=== PATIENT | female | born 1975 | race Caucasian/White ===

== ENCOUNTER → 2016-11-21 | Outpatient (CLI) | payer OTHER ==
[~2016-11-21] MED LIST: CYMBALTA30 M1; DOXYCYCLINE HY100 M3 PO; MIRENA IUD; MOBIC15 MG PO; PANTOPRAZOLE SO40 MG PO; PLAQUENIL200 MG PO; SPIRONOLACTONE50 MG PO; VITAMIN D250000 UNIT PO; VOLTAREN50 MG PO
--- NOTE | ~2016-11-21 | CR97 ---
[facility] A Service of [facility] & [facility] / [facility] RADIOLOGY TEXT RESULTS PATIENT: MEMO BARRETT LOCATION: [facility] : 77 UNIT #: [id number] AGE: [address]: Damian Ji MD SEX: F ORDER DR: [id number] [facility]. [place], [place] [address] [id number] O MR#: [id number] Acc #: [id number] NAME: MEMO BARRETT : 1975 SEX: F STUDY DATE/TIME: 11/21/2016 9:29 UNIT: [facility] ROOM: STUDY DESCRIPTION: CR Esophagram Attending Physician: Damian Ji M.D. Referring Physician: Damian Ji M.D. Ordering Physician: Damian Ji M.D. Primary Care Physician: Caren Anglin A.P.R.N. MEDICAL IMAGING REPORT This report is preliminary unless electronic signature is present EXAM Esophagram 11/21/2016 INDICATIONS 40-year-old female presenting for preop evaluation for lap-band surgery. Possible paraesophageal hernia repair. Acid reflux symptoms, shortness of air with activity. Symptoms began today. TECHNIQUE/COMPARISON Spot fluoroscopic views of the esophagus were obtained in various projections after the patient ingested gas crystals and thick and thin liquid barium on 11/21/2016. No comparisons. FINDINGS Notes indicate 0.8 minutes of fluoroscopy time was used in the case 40 images from the procedure were saved to the DR/PACS. The esophagus demonstrates an unremarkable primary stripping wave. No significant secondary or tertiary contractions. No mass or mucosal abnormality. No significant reflux. No hiatal hernia. IMPRESSION 1. Negative esophagram. 2. Notes indicate 0.8 minutes of fluoroscopy time was used in the case. 40 images from the procedure were saved to the DR/PACS. Dictated by... Sumit Hernandez M.D. THIS IS AN ELECTRONICALLY VERIFIED REPORT Sumit Hernandez M.D. at 11/21/2016 5:16 PM MANUEL/cooper [facility] A Service of [facility] & [facility] / [facility] RADIOLOGY TEXT RESULTS PATIENT: MEMO BARRETT LOCATION: [facility] #: [id number] : [birth year] UNIT #: [id number] AGE: [address]: Damian Ji MD SEX: F ORDER DR: TD: 11/21/2016 14:30 JOB #: [id number] MEDICAL IMAGING REPORT Page 1 of 1 COPY
--- NOTE | ~2016-11-21 | CR63 ---
[facility] A Service of [facility] & [facility] RADIOLOGY TEXT RESULTS PATIENT: MEMO BARRETT LOCATION: [facility] : 77 UNIT #: [id number] AGE: [address]: Damian Ji MD SEX: F ORDER DR: [id number] [facility] [address] [place], [place] [address] [id number] O MR#: [id number] Acc #: [id number] NAME: MEMO BARRETT : 1975 SEX: F STUDY DATE/TIME: 11/21/2016 8:54 UNIT: [facility] ROOM: STUDY DESCRIPTION: CR Chest 2 View Attending Physician: Damian Ji M.D. Referring Physician: Damian Ji M.D. Ordering Physician: Damian Ji M.D. Primary Care Physician: Caren Anglin A.P.R.N. MEDICAL IMAGING REPORT This report is preliminary unless electronic signature is present EXAM Chest PA and lateral 11/21/2016. HISTORY Morbid obesity, preop laparoscopic gastric banding. Gastroesophageal reflux, shortness of breath on exertion today. FINDINGS PA and lateral examination of the chest upright shows a good expansion of the parenchyma with a normal distribution of the pulmonary vascularity. There is no indication of congestion, effusion, infiltrate, tumor, or nodular density. The pleural reflections and diaphragmatic contours are normal. The cardiac silhouette and mediastinal anatomy is within normal limits. IMPRESSION Normal chest. Dictated by... Bart Guzman M.D. THIS IS AN ELECTRONICALLY VERIFIED REPORT Bart Guzman M.D. at 11/21/2016 4:52 PM YAMILET/lemuel TD: 11/21/2016 13:12 JOB #: [id number] MEDICAL IMAGING REPORT Page 1 of 1 COPY
[2016-11-21 10:03] LABS: HEMATOCRIT 39.5 % (35.0-45.0); HEMOGLOBIN 13.2 gm/dL (12.0-16.0); MEAN CELL VOLUME 83.1 FL (83-96); MEAN CORPUSCULAR HEMOGLOBIN 27.9 PG (28-34); MEAN CORPUSCULAR HGB CONC 33.5 g/dL (30-36); MEAN PLATELET VOLUME 8.6 FL (6.5-11.5); RED BLOOD COUNT 4.75 X10e (3.90-5.30); RED CELL DISTRIBUTION WIDTH 14.2 % (11.0-15.5)
[2016-11-21 11:10] LABS: ALBUMIN SERUM 4.2 g/dL (3.5-5.0); BILIRUBIN,TOTAL 0.4 mg/dL (0.2-2.0); CALCIUM SERUM 9.2 mg/dL (8.4-10.2); CREATININE SERUM 0.7 mg/dL (0.6-1.4); GLOM FILT RATE Estimated 109.1 mL/min (>60); POTASSIUM 4.2 mmol/L (3.5-5.1); PROTEIN TOTAL SERUM 7.2 g/dL (6.0-8.3)
== END | disposition home or self-care (01) ==
LOC: CRAD 08:00 → CAMB 09:00
PROVIDERS: Surgery
DX: Z01.818 Encounter for other preprocedural examination (principal); E66.01 Morbid (severe) obesity due to excess calories
CPT/HCPCS: 36415; 71020; 74220; 80053; 80061; 84443; 85027

== ENCOUNTER → 2016-12-03 | Day surgery (SDC) | payer OTHER ==
--- NOTE | ~2016-12-03 | CR7 ---
[facility] A Service of [facility] & [facility] RADIOLOGY TEXT RESULTS PATIENT: MEMO BARRETT LOCATION: [facility] : 77 UNIT #: [id number] AGE: [address]: Damian Ji MD SEX: F ORDER DR: [id number] [facility] [address] [place], [place] [address] [id number] O MR#: [id number] Acc #: [id number] NAME: MEMO BARRETT : 1975 SEX: F STUDY DATE/TIME: 12/03/2016 11:05 UNIT: [facility] ROOM: STUDY DESCRIPTION: CR Abdomen Single AP View Attending Physician: Damian Ji M.D. Referring Physician: Damian Ji M.D. Ordering Physician: Damian Ji M.D. Primary Care Physician: Caren Anglin A.P.R.N. MEDICAL IMAGING REPORT This report is preliminary unless electronic signature is present EXAM Abdomen single view, 12/03/2016 1105 hours HISTORY Morbid obesity with acid reflux. Postop lap band placement today. COMPARISON Esophagram 11/21/2016 FINDINGS Single view of the abdomen excludes the right flank, left flank and pelvis. There is a lap band present overlying the left T10 and T11 costovertebral junctions, oriented at 55 degrees from vertical. Radiopaque tubing extends inferiorly to a port catheter overlying the midline at the L4 level. Bowel gas pattern is unremarkable. IMPRESSION Postop lap band placement with band overlying the left T10 and T11 costovertebral junctions, oriented at 55 degrees from vertical. Radiopaque tubing courses inferiorly to a port overlying the midline at the L4 level. Bowel gas pattern is unremarkable. Dictated by... Suze Trinh M.D. THIS IS AN ELECTRONICALLY VERIFIED REPORT Suze Trinh M.D. at 12/03/2016 2:31 PM SYL/isidro TD: 12/03/2016 12:21 JOB #: [id number] [facility] A Service of [facility] & [facility] RADIOLOGY TEXT RESULTS PATIENT: MEMO BARRETT [id number] [birth year] UNIT #: [id number] AGE: [address]: Damian Ji MD SEX: F ORDER DR: MEDICAL IMAGING REPORT Page 1 of 1 COPY
--- NOTE | ~2016-12-03 | OR ---
Unit #: [id number] #: [id number] Patient: MEMO BARRETT [id number] [address] [place], [place] [address] [id number] O MR#: [id number] NAME: MEMO BARRETT ROOM: Date of Procedure: 12/03/2016 Admission Date: 12/03/2016 Surgeon: Damian Ji M.D. : 1975 Attending Physician: Damian Ji M.D. Referring Physician: Damian Ji M.D. Primary Care Physician: Caren Anglin A.P.R.N. OPERATIVE REPORT PREOPERATIVE DIAGNOSIS Chronic morbid obesity, body mass index of 40. POSTOPERATIVE DIAGNOSES 1. Chronic morbid obesity, body mass index of 40. 2. Paraesophageal hiatal hernia. PROCEDURES PERFORMED 1. Laparoscopic adjustable gastric band. 2. Laparoscopic paraesophageal hiatal hernia repair. ASSISTANT Bob Vaughn M.D. ANESTHESIA General anesthesia. ESTIMATED BLOOD LOSS Minimal. IV FLUIDS 800 crystalloid. COMPLICATIONS None. INDICATIONS FOR PROCEDURE The patient is a 40-year-old with chronic morbid obesity. DESCRIPTION OF PROCEDURE The patient was taken to the operating room and placed in supine position. General anesthesia was induced. The abdomen was prepped and draped. A 3-cm incision was then made left of the midline. A 10-mm Visiport was then placed intraabdominal under direct vision. The abdomen was insufflated to 15 mmHg with CO2. The patient was then placed in a steep reversed Trendelenburg. General inspection of the abdomen revealed what appeared to be a paraesophageal hernia. This was identified with a defect at the diaphragm using anterior palpation with the instrument. We then made a small incision in the subxiphoid region. A Delmer liver retractor was then placed intraabdominal and used to retract the left lobe of the liver upward to further expose the paraesophageal hernia and GE junction. I then placed a 5-mm port in the right upper quadrant, a 10-mm Unit #: [id number] #: [id number] Patient: MEMO BARRETT port in the left upper quadrant, and another 5-mm port in the left lower quadrant. The stomach was retracted medial and downward. Upon retracting the stomach, we took down the paraesophageal ligament, exposing the right and left traci at the paraesophageal hernia. Any hernia sac was reduced. We then repaired the paraesophageal hernia using interrupted #0 Ethibond sutures in a hbzazr-no-pcuke type fashion. This formed a snug repair to the anterior esophagus. We then retracted the stomach medially and further exposed the angle of His using Bovie electrocautery. The stomach was then retracted laterally. We then took down the hepatogastric ligament with Bovie electrocautery. This exposed the right traci. Using blunt dissection, I created a retrogastric tunnel from this point to the angle of His. The band was then placed intraabdominal through the 10-mm port site. This was then brought through the retrogastric tunnel in a pars flaccida technique. The band was then closed anteriorly to form a 20-mL to 25-mL anterior gastric pouch. The fundus was then secured to the anterior pouch to prevent movement around the stomach using two interrupted #0 Ethibond sutures. A third suture was then used as a gathering stitch from the lesser curve to the anterior stomach, gathering and imbricating the remaining fundus of the stomach. The tubing was then brought out through the midline 10-mm port site. All ports and the Delmer liver retractor were removed under direct vision with no evidence of abdominal hemorrhage. A polypropylene mesh was then secured to the posterior face of the laparoscopic band port. This was secured using #0 Ethibond suture. This was then cut to shape. The port was then connected to the tubing and placed into a subcutaneous pocket just anterior to the rectus sheath. Its position was then confirmed. All tubing was then placed intraabdominal. The wounds were then closed with interrupted 4-0 Vicryl. The patient tolerated the procedure well and was sent to the recovery room in good condition. Dictated by... Robert Richards/laurie TD: 12/03/2016 14:44 JOB #: [id number] OPERATIVE REPORT Page 1 of 1 X Damian Ji MD X PROCEDURE OPERATIVE NOTE
== END | disposition home or self-care (01) ==
LOC: CSUR 08:01
DX: E66.01 Morbid (severe) obesity due to excess calories (principal); K44.9 Diaphragmatic hernia without obstruction or gangrene; K21.9 Gastro-esophageal reflux disease without esophagitis; M19.90 Unspecified osteoarthritis, unspecified site; Z68.41 Body mass index [BMI] 40.0-44.9, adult; Z87.440 Personal history of urinary (tract) infections; Z88.0 Allergy status to penicillin; Z88.1 Allergy status to other antibiotic agents; Z88.5 Allergy status to narcotic agent; Z88.8 Allergy status to other drugs, medicaments and biological substances; Z79.1 Long term (current) use of non-steroidal anti-inflammatories (NSAID); Z79.899 Other long term (current) drug therapy
CPT/HCPCS: 74000; 84703; C1781; J0330; J1100; J1650; J1885; J2250; J2405; J2710; J3010; J3370